=== PATIENT | male | born 1960 | race Caucasian/White ===

== ENCOUNTER 2018-12-30 19:26 | Inpatient (IN) | payer BC ==
[~2018-12-30] VITALS: Ht 190.5 cm; Wt 111.1 kg
[~2018-12-30 19:26] MED LIST: FLOMAX0.4 MG ORAL
--- NOTE | 2018-12-30 19:30 | NUR ---
ED Nurse Note: Patient arrived BIBA from the [facility]. Patient has complaints of syncopal episode witnessed by family, no fall, no head trauma. Patient alert and oriented GCS 15. Received report that patient has had diarrhea for 3 days, recent travel.
[2018-12-30 19:43] VITALS: BP 129/72
[2018-12-30 19:53] VITALS: BP 123/79
[2018-12-30 20:10] LABS: ANION GAP 8 mmol/L (5-15); BLOOD UREA NITROGEN 12 mg/dL (7-18); CALCIUM 9.1 MG/DL (8.5-10.1); CARBON DIOXIDE 28 MMOL/L (21-32); CHLORIDE 104 MMOL/L (98-107); CREATININE 1.3 MG/DL (0.55-1.30); POTASSIUM 3.8 MMOL/L (3.5-5.1); SODIUM 140 MMOL/L (136-145)
[2018-12-30 20:11] LABS: EOSINOPHILS % (AUTO) 1.4 % (0.0-3.0); HEMATOCRIT 45.3 % (42.0-52.0); HEMOGLOBIN 15.8 G/DL (14.2-18.0); LYMPHOCYTES % (AUTO) 19.2 % (20.0-45.0); MEAN CORPUSCULAR VOLUME 85 FL (80-99); MONOCYTES % (AUTO) 6.8 % (1.0-10.0); NEUTROPHILS % (AUTO) 71.7 % (45.0-75.0); PLATELET COUNT 241 K/UL (150-450); RED CELL DISTRIBUTION WIDTH 11.1 % (11.6-14.8); WHITE BLOOD COUNT 10.2 K/UL (4.8-10.8)
[2018-12-30 20:14] LABS: ALANINE AMINOTRANSFERASE 41 U/L (12-78); ALBUMIN 4.1 G/DL (3.4-5.0); ALBUMIN/GLOBULIN RATIO 1.3 (1.0-2.7); ALKALINE PHOSPHATASE 77 U/L (46-116); ASPARTATE AMINO TRANSFERASE 26 U/L (15-37); BILIRUBIN,TOTAL 0.4 MG/DL (0.2-1.0); CREATINE KINASE 156 U/L (26-308)
[2018-12-30 20:39] LABS: CKMB 4.6 NG/ML (0.0-3.6)
--- NOTE | 2018-12-30 20:50 | Emergency Room Report ---
History of Present Illness General Chief Complaint: General Complaint Source: Patient Present Illness HPI Patient was at a magic show He had arrived and the show was about to start when he had asked to use the restroom Patient's friend here reports that soon after the patient requested that he appeared to stare out into space it appeared that he was about to tilt over and passed out He was held up by other people there And he described an episode with the patient appeared to be coming in and out of consciousness at times responding and at times appearing as if he was passed out Patient recalls going to the event Patient recalls asking for the restroom and did not recall the episode after that He does feel somewhat lightheaded prior to this episode patient reports having a glass a wine at home and then having 2 beers at the event as well at this time denies any chest pain denies any back or flank pain denies any focal weakness there was no report of any change with speech , Allergies: Coded Allergies: No Known Allergies (Unverified , 12/30/18) Patient History Past Medical History: see triage record Pertinent Family History: none Reviewed Nursing Documentation: PMH: Agreed; PSxH: Agreed Nursing Documentation-PMH Past Medical History: No History, Except For Review of Systems All Other Systems: negative except mentioned in HPI Physical Exam Vital Signs Date Time Temp Pulse Resp B/P (MAP) Pulse Ox O2 Delivery O2 Flow Rate FiO2 12/30/18 19:21 97.7 80 16 99 Room Air 12/30/18 19:43 129/72 Sp02 EP Interpretation: reviewed, normal General Appearance: well appearing, no apparent distress Head: normocephalic, atraumatic Eyes: bilateral eye PERRL, bilateral eye EOMI ENT: hearing grossly normal, normal pharynx, TMs + canals normal, uvula midline Neck: full range of motion, supple, no meningismus, no bony tend Respiratory: lungs clear, normal breath sounds, no rhonchi, no respiratory distress, no retraction, no accessory muscle use Cardiovascular #1: normal peripheral pulses, regular rate, rhythm, no edema, no gallop, no JVD, no murmur Gastrointestinal: normal bowel sounds, non tender, soft, no mass, no organomegaly, non-distended, no guarding, no hernia, no pulsatile mass, no rebound Genitourinary: no CVA tenderness Musculoskeletal: normal inspection Neurologic: oriented x3, responsive, psychologist engineering III-XII nml as tested, motor strength/ tone normal, sensory intact Psychiatric: mood/affect normal Skin: normal color, no rash, warm/dry, palpation normal Lymphatic: normal inspection, no adenopathy Medical Decision Making Diagnostic Impression: Primary Impression: Syncope ER Course Patient is a fairly complex patient with multiple differential to consideration including but not limited to cardiac cardiopulmonary and vascular emergencies Given the patient's appropriate neurological exam and lack of any obvious trauma CT imaging was not warranted Patient has mild elevated CK index Also glucose is borderline Given the patient's unusual episode felt he was appropriate for further inpatient care and follow-up Labs Test 12/30/18 19:39 12/30/18 21:15 12/31/18 05:45 12/31/18 07:00 White Blood Count 10.2 K/UL (4.8-10.8) 11.5 K/UL (4.8-10.8) Red Blood Count 5.30 M/UL (4.70-6.10) 5.43 M/UL (4.70-6.10) Hemoglobin 15.8 G/DL (14.2-18.0) 16.2 G/DL (14.2-18.0) Hematocrit 45.3 % (42.0-52.0) 47.6 % (42.0-52.0) Mean Corpuscular Volume 85 FL (80-99) 88 FL (80-99) Mean Corpuscular Hemoglobin 29.8 PG (27.0-31.0) 29.8 PG (27.0-31.0) Mean Corpuscular Hemoglobin Concent 34.9 G/DL (32.0-36.0) 34.0 G/DL (32.0-36.0) Red Cell Distribution Width 11.1 % (11.6-14.8) 11.4 % (11.6-14.8) Platelet Count 241 K/UL (150-450) 243 K/UL (150-450) Mean Platelet Volume 5.3 FL (6.5-10.1) 5.9 FL (6.5-10.1) Neutrophils (%) (Auto) 71.7 % (45.0-75.0) 65.4 % (45.0-75.0) Lymphocytes (%) (Auto) 19.2 % (20.0-45.0) 22.0 % (20.0-45.0) Monocytes (%) (Auto) 6.8 % (1.0-10.0) 9.6 % (1.0-10.0) Eosinophils (%) (Auto) 1.4 % (0.0-3.0) 2.3 % (0.0-3.0) Basophils (%) (Auto) 1.0 % (0.0-2.0) 0.6 % (0.0-2.0) Sodium Level 140 MMOL/L (136-145) 139 MMOL/L (136-145) Potassium Level 3.8 MMOL/L (3.5-5.1) 4.2 MMOL/L (3.5-5.1) Chloride Level 104 MMOL/L (98-107) 104 MMOL/L (98-107) Carbon Dioxide Level 28 MMOL/L (21-32) 28 MMOL/L (21-32) Anion Gap 8 mmol/L (5-15) 7 mmol/L (5-15) Blood Urea Nitrogen 12 mg/dL (7-18) 17 mg/dL (7-18) Creatinine 1.3 MG/DL (0.55-1.30) 1.2 MG/DL (0.55-1.30) Estimat Glomerular Filtration Rate 56.7 mL/min (>60) > 60 mL/min (>60) Glucose Level 192 MG/DL (74-106) 107 MG/DL (74-106) Calcium Level 9.1 MG/DL (8.5-10.1) 9.4 MG/DL (8.5-10.1) Total Bilirubin 0.4 MG/DL (0.2-1.0) Aspartate Amino Transf (AST/SGOT) 26 U/L (15-37) Alanine Aminotransferase (ALT/SGPT) 41 U/L (12-78) Alkaline Phosphatase 77 U/L (46-116) Total Creatine Kinase 156 U/L (26-308) Creatine Kinase MB 4.6 NG/ML (0.0-3.6) Creatine Kinase MB Relative Index 2.9 Troponin I 0.004 ng/mL (0.000-0.056) 0.002 ng/mL (0.000-0.056) Total Protein 7.2 G/DL (6.4-8.2) Albumin 4.1 G/DL (3.4-5.0) Globulin 3.1 g/dL Albumin/Globulin Ratio 1.3 (1.0-2.7) Urine Color Pale yellow Pale yellow Urine Appearance Clear Clear Urine pH 6 (4.5-8.0) 6 (4.5-8.0) Urine Specific [place] 1.010 (1.005-1.035) 1.015 (1.005-1.035) Urine Protein Negative (NEGATIVE) Negative (NEGATIVE) Urine Glucose (UA) Negative (NEGATIVE) Negative (NEGATIVE) Urine Ketones Negative (NEGATIVE) Negative (NEGATIVE) Urine Blood Negative (NEGATIVE) 3+ (NEGATIVE) Urine Nitrite Negative (NEGATIVE) Negative (NEGATIVE) Urine Bilirubin Negative (NEGATIVE) Negative (NEGATIVE) Urine Urobilinogen Normal MG/DL (0.0-1.0) Normal MG/DL (0.0-1.0) Urine Leukocyte Esterase Negative (NEGATIVE) Negative (NEGATIVE) Urine Opiates Screen Negative (NEGATIVE) Urine Barbiturates Screen Negative (NEGATIVE) Phencyclidine (PCP) Screen Negative (NEGATIVE) Urine Amphetamines Screen Negative (NEGATIVE) Urine Benzodiazepines Screen Negative (NEGATIVE) Urine Cocaine Screen Negative (NEGATIVE) Urine Marijuana (THC) Screen Negative (NEGATIVE) EKG Diagnostic Results Rate: normal Rhythm: NSR ST Segments: no acute changes Rhythm Strip Diag. Results EP Interpretation: yes Rate: 70 Rhythm: NSR, no PVC's, no ectopy Last Vital Signs Date Time Temp Pulse Resp B/P (MAP) Pulse Ox O2 Delivery O2 Flow Rate FiO2 12/30/18 19:53 97.7 82 21 123/79 98 Room Air Status: improved Disposition: ADMITTED INPATIENT Condition: Serious Benedicto Salazar DO December 30, 2018 20:50
--- NOTE | 2018-12-30 21:01 | NUR ---
ED Nurse Note: PATIENT IS RESTING WITH EX AT BEDSIDE. NO S/S OF ACUTE DISTRESS.
[2018-12-30 21:39] LABS: APPEARANCE,URINE CLEAR; BILIRUBIN, URINE NEGATIVE (NEGATIVE); COLOR,URINE PALE YELLOW; GLUCOSE, URINE (UA) NEGATIVE (NEGATIVE); KETONES,URINE NEGATIVE (NEGATIVE); LEUKOCYTE ESTERASE ,URINE NEGATIVE (NEGATIVE); NITRITE,URINE NEGATIVE (NEGATIVE); PH,URINE 6 (4.5-8.0); PROTEIN,URINE NEGATIVE (NEGATIVE); UROBILINOGEN,URINE NORMAL MG/DL (0.0-1.0)
--- NOTE | 2018-12-30 22:29 | NUR ---
ED Nurse Note: Called report in to Carmel Sloan RN. Patient i A&Ox4, ambulatory with steady gait. GCS 15. PAtient's ex will meet him upstairs.
[2018-12-30 22:37] VITALS: BP 126/84
--- NOTE | 2018-12-30 22:45 | NUR ---
ED Nurse Note: Patient transported to floor by Nelson and RN. $94.00 samano verified upon arrival with floor nurse. PAtient arrived without incident. Vital signs stable.
[2018-12-30] MEDS ORDERED: Enoxaparin 30mg Inj SUBQ SCH (23:00)
--- NOTE | 2018-12-30 23:10 | NUR ---
NURSE NOTES: Received report from Shamar Finnegan, ED RN. [facility] Fall precaution applied. superannuation clerk was applied, and call light, urinal and side table are w/in reach. Pt's belonging checked. Samano $94 was checked w/ 2 staffs, and pt wanted put it in the security box. VSS, SR, 93 bpm in the monitor. Pt is resting in the bed w/o distress at this time. PCP placed admission orders. Will follow plans of care. Addendum: 12/31/18 at 0122 by VICKY AYALA RN Quality Improvement Engineer, STEPHY Frye and solutions executive security checked samano and found more samano. It was $100 total in the security box. Receipt was given to pt and copy is kept in the chart.
[2018-12-31] VITALS: BP 140/89
--- NOTE | 2018-12-31 01:22 | NUR ---
NURSE NOTES: Called and left message to Dr. Darling regarding Home med of Tamsulosin 0.4mg PO daily, Finasterdie 5 mg PO daily. pt mentioned that it is ok to skip the med for tonight. Awaiting call back.
[2018-12-31 04:00] VITALS: BP 146/86
[2018-12-31 07:06] LABS: ANION GAP 7 mmol/L (5-15); BLOOD UREA NITROGEN 17 mg/dL (7-18); CALCIUM 9.4 MG/DL (8.5-10.1); CARBON DIOXIDE 28 MMOL/L (21-32); CHLORIDE 104 MMOL/L (98-107); CREATININE 1.2 MG/DL (0.55-1.30); POTASSIUM 4.2 MMOL/L (3.5-5.1); SODIUM 139 MMOL/L (136-145)
[2018-12-31 07:09] LABS: BASOPHILS % (AUTO) 0.6 % (0.0-2.0); EOSINOPHILS % (AUTO) 2.3 % (0.0-3.0); HEMATOCRIT 47.6 % (42.0-52.0); HEMOGLOBIN 16.2 G/DL (14.2-18.0); MEAN CORPUSCULAR VOLUME 88 FL (80-99); MONOCYTES % (AUTO) 9.6 % (1.0-10.0); NEUTROPHILS % (AUTO) 65.4 % (45.0-75.0); PLATELET COUNT 243 K/UL (150-450); RED BLOOD COUNT 5.43 M/UL (4.70-6.10); RED CELL DISTRIBUTION WIDTH 11.4 % (11.6-14.8); WHITE BLOOD COUNT 11.5 K/UL (4.8-10.8)
--- NOTE | 2018-12-31 07:29 | NUR ---
HAND-OFF: Report given to Tiesha Betts RN.
[2018-12-31] MEDS ORDERED: PROSCAR5 MG ORAL (07:42)
[2018-12-31 08:00] VITALS: BP 135/83
[2018-12-31] MEDS ORDERED: Gadavist 7.5mMol/7.5ml vial IV PRN (08:00)
[2018-12-31 08:01] LABS: APPEARANCE,URINE CLEAR; BILIRUBIN, URINE NEGATIVE (NEGATIVE); COLOR,URINE PALE YELLOW; GLUCOSE, URINE (UA) NEGATIVE (NEGATIVE); KETONES,URINE NEGATIVE (NEGATIVE); LEUKOCYTE ESTERASE ,URINE NEGATIVE (NEGATIVE); NITRITE,URINE NEGATIVE (NEGATIVE); PH,URINE 6 (4.5-8.0); PROTEIN,URINE NEGATIVE (NEGATIVE); UROBILINOGEN,URINE NORMAL MG/DL (0.0-1.0)
[2018-12-31] MEDS: Aspirin Baby 81mg ORAL SCH (09:09)
--- NOTE | 2018-12-31 10:30 | History and Physical Report ---
DATE OF ADMISSION: 12/30/2018 REASON FOR ADMISSION: Syncope. HISTORY OF PRESENT ILLNESS: The patient is a pleasant 58-year-old gentleman, who was at a local magic show when he was about to use the restroom and felt lightheaded. The patient stated he was actually sitting down at one point and passed out. He states an EMT at the local show actually came and responded. The patient states that he did actually pass out because there is a time of event where he does not remember. He states this has not happened in the past. Only had felt lightheaded or dizzy in the past when had an acute illness. During the evening, the patient noted having one glass of wine and two beers. No other alcohol or drugs. No chest pain, nausea, vomiting, or diarrhea. ALLERGIES: No known drug allergies. PAST MEDICAL HISTORY: BPH. PAST SURGICAL HISTORY: None. FAMILY HISTORY: Noncontributory. REVIEW OF SYSTEMS: NEUROLOGIC: The patient had a syncopal event with lightheadedness. CARDIOVASCULAR: No chest pain, palpitations, or angina. PULMONARY: No difficulty breathing, productive cough, or sputum. GASTROINTESTINAL/GENITOURINARY: No change in urinary or bowel habits. No nausea, vomiting, or diarrhea. ENDOCRINOLOGY: No night sweats, fevers, or chills. MUSCULOSKELETAL: The patient feeling weak, tired, and fatigue. PHYSICAL EXAMINATION: VITAL SIGNS: Blood pressure 146/86, respiratory rate 20, pulse 82, temperature 98.0, and 94% oxygen saturation on room air. GENERAL: Awake, alert, not otherwise in distress. HEENT: Extraocular muscles intact. No lymphadenopathy noted. CARDIOVASCULAR: S1, S2. No murmurs, rubs, or gallops. PULMONARY: Clear to auscultation bilaterally. No rales, rhonchi, or wheezes. ABDOMEN: Nondistended and nontender. EXTREMITIES: No edema. LABORATORY DATA: Laboratories dated December 31, 2018, sodium 139, potassium 4.2, creatinine 1.2, glucose 107, calcium 9.4. Troponin . Toxicology screen negative. White cell count 11.5, hemoglobin 16.2, and platelet count 243. Urinalysis negative. ASSESSMENT AND PLAN: 1. Syncope. At this time, etiology not entirely clear. It could have been secondary to dehydration from alcohol consumption. The patient is much improved. Carotid ultrasound to rule out stenosis has been ordered along with an MRI of the brain. Troponins have been ordered, which have been negative along with a Cardiology consult. Once cardiac and neurological events have been investigated, the patient can be deemed stable for discharge. 2. BPH. We will continue finasteride and Flomax. 3. DVT prophylaxis with Lovenox. Jamie Darling MD DR: CHARLES/TAJ JOB#: [id number] CC:
--- NOTE | 2018-12-31 11:10 | Cardiology Report ---
APPROVED REPORT EKG Measurement Heart [id number] Normal sinus rhythm Normal ECG
[2018-12-31 12:00] VITALS: BP 140/98
--- NOTE | 2018-12-31 12:22 | Consultation ---
History of Present Illness General Date patient seen: December 30, 2018 Chief Complaint: Syncope/ Near Syncope Present Illness HPI Ignacio Wade is a 58 year old man with a PMH of prior syncope and BPH. He reports that he had some wine at home and a couple of beers at a magic show when he began to feel lightheaded and says he felt like he was going to pass out , at which point he said he wanted to go to the bathroom. He reports that he was aware of what was happening around him but he couldn't control his body and saw what was happening around him. According to ER records, patient's friend reported that soon after the patient requested that he appeared to stare out into space it appeared that he was about to tilt over and passed out He was held up by other people there and he described an episode where the patient appeared to be coming in and out of consciousness at times responding and at times appearing as if he was passed out Upon questioning, patient states that he remembers this episode and was with his ex - , with whom he shares a daughter with Epilepsy. He thinks she called an ambulance because she was worried this may be a seizure. However, he reports that he has had similar past episodes and never been confused, weak, or experienced any motor tremors, incontinence or tongue biting. At the time of our examination, patient is fully intact without focal deficits, slurred speech, facial weakness or confusion. Allergies: Coded Allergies: No Known Allergies (Unverified , 12/30/18) Medication History Scheduled Finasteride* (Proscar*), 5 MG ORAL DAILY, (Reported) Tamsulosin HCl (Flomax), 0.4 MG ORAL DAILY, (Reported) Patient History History Provided By: Patient, Medical Record Healthcare decision maker Resuscitation status Full Code Advanced Directive on File Review of Systems Constitutional: Denies: no symptoms, see HPI, chills, sweats, fever, malaise, weakness, other ENT: Denies: no symptoms, see HPI, ear pain, ear discharge, nose pain, nose congestion, throat pain, throat swelling, mouth pain, hearing loss, nasal discharge, other Respiratory: Denies: no symptoms, see HPI, cough, orthopnea, shortness of breath, stridor, wheezing, CURRY, sputum, other Cardiovascular: Denies: no symptoms, see HPI, chest pain, edema, palpitations, syncope, PND, other Gastrointestinal: Denies: no symptoms, see HPI, abdominal pain, constipation, diarrhea, nausea, vomiting, melena, hematemesis, other Genitourinary: Denies: no symptoms, see HPI, discharge, dysuria, frequency, hematuria, pain, retention, incontinence, urgency, vag bleed/dc, other Musculoskeletal: Denies: no symptoms, see HPI, back pain, gout, joint pain, joint swelling, muscle pain, muscle stiffness, other Skin: Denies: no symptoms, see HPI, rash, change in color, change in hair/nails , dryness, lesions, other Psychiatric: Denies: no symptoms, see HPI, prior hx, anxiety, depressed feelings, emotional problems, SI, HI, hallucinations, other Neurological: Denies: no symptoms, see HPI, headache, numbness, paresthesia, seizure, tingling, tremors, focal weakness, syncope, dizziness, other Endocrine: Denies: no symptoms, see HPI, excessive sweating, flushing, intolerance to temperature, increased thirst, increased urine, unexplained weight loss, other Hematologic/Lymphatic: Denies: no symptoms, see HPI, anemia, blood clots, easy bleeding, easy bruising, swollen glands, diathesis, other Physical Exam General Appearance: WD/WN, no apparent distress, alert Lines, tubes and drains: peripheral HEENT: normocephalic, atraumatic, anicteric, mucous membranes moist, PERRL Neck: non-tender, normal alignment, supple Respiratory/Chest: normal breath sounds Cardiovascular/Chest: normal peripheral pulses, no JVD Abdomen: non tender Extremities: normal range of motion, non-tender, normal inspection, no calf tenderness, normal capillary refill, non-pitting, no edema, no cyanosis Skin Exam: normal pigmentation, warm/dry Neurologic: warehouse checker II-XII grossly normal, no motor/sensory deficits, alert, oriented x 3, responsive, normal mood/affect Musculoskeletal: normal muscle bulk, no effusion Last 24 Hour Vital Signs Date Time Temp Pulse Resp B/P (MAP) Pulse Ox O2 Delivery O2 Flow Rate FiO2 12/31/18 08:00 97.8 62 20 135/83 (100) 97 12/31/18 04:00 98.0 74 20 146/86 (106) 94 12/31/18 04:00 82 12/31/18 00:00 90 12/31/18 00:00 98.0 92 20 140/89 (106) 96 12/30/18 23:45 Room Air 12/30/18 22:39 98.1 98 17 126/84 96 Room Air 12/30/18 22:37 98.1 98 17 126/84 96 Room Air 12/30/18 19:53 97.7 82 21 123/79 98 Room Air 12/30/18 19:43 97.7 89 16 129/72 99 Room Air 12/30/18 19:43 80 16 Room Air 12/30/18 19:21 97.7 80 16 99 Room Air Intake and Output 12/30/18 12/31/18 19:00 07:00 Intake Total 0 ml Output Total 1000 ml Balance -1000 ml Intake Oral 0 ml Output Urine Total 1000 ml Laboratory Tests Test 12/30/18 19:39 12/30/18 21:15 12/31/18 05:45 12/31/18 07:00 White Blood Count 10.2 K/UL (4.8-10.8) 11.5 K/UL (4.8-10.8) H Red Blood Count 5.30 M/UL (4.70-6.10) 5.43 M/UL (4.70-6.10) Hemoglobin 15.8 G/DL (14.2-18.0) 16.2 G/DL (14.2-18.0) Hematocrit 45.3 % (42.0-52.0) 47.6 % (42.0-52.0) Mean Corpuscular Volume 85 FL (80-99) 88 FL (80-99) Mean Corpuscular Hemoglobin 29.8 PG (27.0-31.0) 29.8 PG (27.0-31.0) Mean Corpuscular Hemoglobin Concent 34.9 G/DL (32.0-36.0) 34.0 G/DL (32.0-36.0) Red Cell Distribution Width 11.1 % (11.6-14.8) L 11.4 % (11.6-14.8) L Platelet Count 241 K/UL (150-450) 243 K/UL (150-450) Mean Platelet Volume 5.3 FL (6.5-10.1) L 5.9 FL (6.5-10.1) L Neutrophils (%) (Auto) 71.7 % (45.0-75.0) 65.4 % (45.0-75.0) Lymphocytes (%) (Auto) 19.2 % (20.0-45.0) L 22.0 % (20.0-45.0) Monocytes (%) (Auto) 6.8 % (1.0-10.0) 9.6 % (1.0-10.0) Eosinophils (%) (Auto) 1.4 % (0.0-3.0) 2.3 % (0.0-3.0) Basophils (%) (Auto) 1.0 % (0.0-2.0) 0.6 % (0.0-2.0) Sodium Level 140 MMOL/L (136-145) 139 MMOL/L (136-145) Potassium Level 3.8 MMOL/L (3.5-5.1) 4.2 MMOL/L (3.5-5.1) Chloride Level 104 MMOL/L (98-107) 104 MMOL/L (98-107) Carbon Dioxide Level 28 MMOL/L (21-32) 28 MMOL/L (21-32) Anion Gap 8 mmol/L (5-15) 7 mmol/L (5-15) Blood Urea Nitrogen 12 mg/dL (7-18) 17 mg/dL (7-18) Creatinine 1.3 MG/DL (0.55-1.30) 1.2 MG/DL (0.55-1.30) Estimat Glomerular Filtration Rate 56.7 mL/min (>60) > 60 mL/min (>60) Glucose Level 192 MG/DL (74-106) H 107 MG/DL (74-106) H Calcium Level 9.1 MG/DL (8.5-10.1) 9.4 MG/DL (8.5-10.1) Total Bilirubin 0.4 MG/DL (0.2-1.0) Aspartate Amino Transf (AST/SGOT) 26 U/L (15-37) Alanine Aminotransferase (ALT/SGPT) 41 U/L (12-78) Alkaline Phosphatase 77 U/L (46-116) Total Creatine Kinase 156 U/L (26-308) Creatine Kinase MB 4.6 NG/ML (0.0-3.6) H Creatine Kinase MB Relative Index 2.9 Troponin I 0.004 ng/mL (0.000-0.056) 0.002 ng/mL (0.000-0.056) Total Protein 7.2 G/DL (6.4-8.2) Albumin 4.1 G/DL (3.4-5.0) Globulin 3.1 g/dL Albumin/Globulin Ratio 1.3 (1.0-2.7) Urine Color Pale yellow Pale yellow Urine Appearance Clear Clear Urine pH 6 (4.5-8.0) 6 (4.5-8.0) Urine Specific [place] 1.010 (1.005-1.035) 1.015 (1.005-1.035) Urine Protein Negative (NEGATIVE) Negative (NEGATIVE) Urine Glucose (UA) Negative (NEGATIVE) Negative (NEGATIVE) Urine Ketones Negative (NEGATIVE) Negative (NEGATIVE) Urine Blood Negative (NEGATIVE) 3+ (NEGATIVE) H Urine Nitrite Negative (NEGATIVE) Negative (NEGATIVE) Urine Bilirubin Negative (NEGATIVE) Negative (NEGATIVE) Urine Urobilinogen Normal MG/DL (0.0-1.0) Normal MG/DL (0.0-1.0) Urine Leukocyte Esterase Negative (NEGATIVE) Negative (NEGATIVE) Urine Opiates Screen Negative (NEGATIVE) Urine Barbiturates Screen Negative (NEGATIVE) Phencyclidine (PCP) Screen Negative (NEGATIVE) Urine Amphetamines Screen Negative (NEGATIVE) Urine Benzodiazepines Screen Negative (NEGATIVE) Urine Cocaine Screen Negative (NEGATIVE) Urine Marijuana (THC) Screen Negative (NEGATIVE) Urine RBC 10-15 /HPF (0 - 0) H Urine WBC 0-2 /HPF (0 - 0) Urine Squamous Epithelial Cells Occasional /LPF Urine Bacteria Occasional /HPF (NONE) Height (Feet): 6 Height (Inches): 3.00 Weight (Pounds): 245 Medications Current Medications Medications (Trade) Dose Ordered Sig/Corry Route PRN Reason Start Time Stop Time Status Last Admin Dose Admin Acetaminophen (Tylenol) 650 mg Q4H PRN ORAL Mild Pain (Pain Scale 1-3) 12/30/18 21:30 01/29/19 21:29 Aspirin (ASA) 81 mg DAILY ORAL 12/31/18 09:00 01/30/19 08:59 12/31/18 09:09 Dextrose (Dextrose 50%) 25 ml Q30M PRN IV Hypoglycemia 12/30/18 21:30 01/29/19 21:29 Dextrose (Dextrose 50%) 50 ml Q30M PRN IV Hypoglycemia 12/30/18 21:30 01/29/19 21:29 Enoxaparin Sodium (Lovenox) 40 mg QHS SUBQ 12/31/18 21:00 01/30/19 20:59 Famotidine (Pepcid) 40 mg DAILY ORAL 12/31/18 09:00 01/30/19 08:59 12/31/18 09:09 Finasteride (Proscar) 5 mg DAILY ORAL 12/31/18 09:00 01/30/19 08:59 12/31/18 09:08 Tamsulosin HCl (Flomax) 0.4 mg BEDTIME ORAL 12/31/18 21:00 01/30/19 20:59 Assessment/Plan Problem List: (1) Syncope Assessment & Plan: Likely a vasovagal syncope but prudent to rule out CVA or seizure MRI already ordered Routine EEG - may be performed as outpatient if no further episodes Labs: TSH HgBA1c Lipids To assess for stroke risk factors Continue ASA 81mg Q4 neuro obs PT Eval today Should follow up with neurology as outpatient if further episodes occur. ICD Codes: R55 - Syncope and collapse SNOMED: [id number] Status: stable Assessment/Plan: Syncope vs Seizure vs TIA/CVA - Likely vasovagal syncope MRI already ordered - to rule out TIA /CVA and EEG - ordered but can be performed as outpatient if unable to have today . Claudia Linton N.P. December 31, 2018 12:22
--- NOTE | 2018-12-31 12:27 | Diagnostic Imaging Report ---
Indication: 58-year-old with the syncope and fainting episode Technique: The head was imaged in a 1.5 Giovana magnet. Sequences obtained include sagittal and axial T1 FLAIR, axial T2 fast spin echo with fat saturation, axial T2 FLAIR, diffusion and ADC map. Gadolinium-enhanced axial and coronal T1 FLAIR obtained also. Comparison: None Findings: Size contour and configuration of the sulci, ventricles, and basal cisterns are within normal. Trace, nonspecific T2 hyperintensity noted within white matter primarily periventricular in location. This may be due to chronic small vessel disease. No abnormal enhancement is identified. There is no restricted diffusion. Dior-white differentiation is normal. There is no mass effect, midline shift, edema, or hemorrhage. There are no abnormal extra-axial or intra-axial fluid collections. The corpus callosum and sella are unremarkable. The brainstem and cerebellum are unremarkable. Bone marrow signal within the visualized osseous structures appears age appropriate and unremarkable otherwise. Impression: No acute intracranial findings. Trace nonspecific T2 hyperintensity foci likely chronic small vessel disease involving white matter tracts.
[2018-12-31 12:51] LABS: CHOLESTEROL 161 MG/DL (< 200); HDL CHOLESTEROL 33 MG/DL (40-60); TRIGLYCERIDES 148 MG/DL (30-150)
--- NOTE | 2018-12-31 13:06 | NUR ---
*-* NO INSURANCE INFORMATION UNABLE TO SEND CLINICALS OR REVIEWS *-*
--- NOTE | 2018-12-31 15:38 | NUR ---
CASE MANAGEMENT:[facility] 58 [facility] CC: SYNCOPE SI: SYNCOPE 97.7 80 16 129/72 99% ON RA GLUCOSE+192 CKMB+4.6 TROPONIN(-) IS: 500CC NS BOLUS LOVENOX ASA PO : TO TELEMETRY IS: CT HEAD CAROTID DUPLEX EEG INTERQUAL CRITERIA MET
[2018-12-31 16:00] VITALS: BP 137/83
--- NOTE | 2018-12-31 19:22 | NUR ---
HAND-OFF: Report given to Mariaelena RN. Plan of care endorsed. Pt in stable condition.
--- NOTE | 2018-12-31 19:52 | NUR ---
NURSE NOTES: Received patient from Marisel Betts RN. Patient in bed, alert and oriented. On room air, no s/s of respiratory distress. Family at bedside. Bed in low position, alarm on, bed locked, alexx light within reach.
[2018-12-31 20:00] VITALS: BP 143/99
[2018-12-31] MEDS ORDERED: Enoxaparin 40mg Inj SUBQ SCH (21:00)
[2018-12-31] MEDS ORDERED: Tamsulosin 0.4mg cap ORAL SCH (21:00)
--- NOTE | 2018-12-31 21:28 | Neurology Progress Note ---
Interim History Interim History Events: Syncope Objective Physical Exam Last Vital Signs Date Time Temp Pulse Resp B/P (MAP) Pulse Ox O2 Delivery O2 Flow Rate FiO2 12/31/18 16:00 78 12/31/18 16:00 97.0 20 137/83 (101) 97 12/31/18 09:00 Room Air Laboratory Tests Test 12/31/18 05:45 12/31/18 07:00 White Blood Count 11.5 K/UL (4.8-10.8) H Red Blood Count 5.43 M/UL (4.70-6.10) Hemoglobin 16.2 G/DL (14.2-18.0) Hematocrit 47.6 % (42.0-52.0) Mean Corpuscular Volume 88 FL (80-99) Mean Corpuscular Hemoglobin 29.8 PG (27.0-31.0) Mean Corpuscular Hemoglobin Concent 34.0 G/DL (32.0-36.0) Red Cell Distribution Width 11.4 % (11.6-14.8) L Platelet Count 243 K/UL (150-450) Mean Platelet Volume 5.9 FL (6.5-10.1) L Neutrophils (%) (Auto) 65.4 % (45.0-75.0) Lymphocytes (%) (Auto) 22.0 % (20.0-45.0) Monocytes (%) (Auto) 9.6 % (1.0-10.0) Eosinophils (%) (Auto) 2.3 % (0.0-3.0) Basophils (%) (Auto) 0.6 % (0.0-2.0) Sodium Level 139 MMOL/L (136-145) Potassium Level 4.2 MMOL/L (3.5-5.1) Chloride Level 104 MMOL/L (98-107) Carbon Dioxide Level 28 MMOL/L (21-32) Anion Gap 7 mmol/L (5-15) Blood Urea Nitrogen 17 mg/dL (7-18) Creatinine 1.2 MG/DL (0.55-1.30) Estimat Glomerular Filtration Rate > 60 mL/min (>60) Glucose Level 107 MG/DL (74-106) H Hemoglobin A1c 6.0 % (4.3-6.0) Calcium Level 9.4 MG/DL (8.5-10.1) Troponin I 0.002 ng/mL (0.000-0.056) Triglycerides Level 148 MG/DL (30-150) Cholesterol Level 161 MG/DL (< 200) LDL Cholesterol 108 mg/dL (<100) H HDL Cholesterol 33 MG/DL (40-60) L Cholesterol/HDL Ratio 4.9 (3.3-4.4) H Thyroid Stimulating Hormone (TSH) 2.829 uiU/mL (0.358-3.740) Urine Color Pale yellow Urine Appearance Clear Urine pH 6 (4.5-8.0) Urine Specific [place] 1.015 (1.005-1.035) Urine Protein Negative (NEGATIVE) Urine Glucose (UA) Negative (NEGATIVE) Urine Ketones Negative (NEGATIVE) Urine Blood 3+ (NEGATIVE) H Urine Nitrite Negative (NEGATIVE) Urine Bilirubin Negative (NEGATIVE) Urine Urobilinogen Normal MG/DL (0.0-1.0) Urine Leukocyte Esterase Negative (NEGATIVE) Urine RBC 10-15 /HPF (0 - 0) H Urine WBC 0-2 /HPF (0 - 0) Urine Squamous Epithelial Cells Occasional /LPF Urine Bacteria Occasional /HPF (NONE) Impression/Recommendations Problems: (1) Syncope Assessment & Plan: Likely a vasovagal syncope but prudent to rule out CVA or seizure MRI already ordered Routine EEG - may be performed as outpatient if no further episodes Labs: TSH HgBA1c Lipids To assess for stroke risk factors Continue ASA 81mg Q4 neuro obs PT Eval today Should follow up with neurology as outpatient if further episodes occur. Status: stable Claudia Linton N.P. December 31, 2018 21:28
[2019-01-01] VITALS: BP 147/86
--- NOTE | 2019-01-01 02:50 | NUR ---
HAND-OFF: Report given to STEPHY Reardon. Patient is asleep lying semi-hill's; resting comfortably. In stable condition.
--- NOTE | 2019-01-01 03:00 | NUR ---
NURSE NOTES: Got report from Mona KEYES. Pt in stable condition. Continue to monitor.
--- NOTE | 2019-01-01 03:45 | Consultation ---
DATE OF CONSULTATION: 12/31/2018 CARDIOLOGY CONSULTATION CONSULTING PHYSICIAN: Damion Bryant M.D. REQUESTING PHYSICIAN: Jamie Darling M.D. REASON FOR CONSULTATION: Syncope. HISTORY OF PRESENT ILLNESS: This 58-year-old white male with no history of cardiovascular disease was at a magic show last night, when he felt lightheaded, went to the bathroom for an unknown reason and passed out. He did not sustain any injury, but has no recollection of the events associated with his fall. He notes that he had eaten although had been hungry previously and had two beers and a glass of wine. He also had been somewhat "dehydrated" due to several days of ongoing diarrhea. He was evaluated in the emergency room and had a normal EKG, stable vital signs, and was admitted for further management. PAST MEDICAL HISTORY: Notable for prostatic hypertrophy. ALLERGIES: None. FAMILY HISTORY: Noncontributory. SOCIAL HISTORY: Negative for smoking or substance abuse. He drinks alcohol socially. REVIEW OF SYSTEMS: Negative for cerebrovascular disease, seizure disorder, endocarditis, rheumatic heart disease, irregular heartbeats, hypertension, or coronary artery disease. There is no history of thyroid disorder or diabetes and no history of asthma or abnormal blood clotting. PHYSICAL EXAMINATION: VITAL SIGNS: Blood pressure 146/86, pulse 82, respiratory rate 20, and afebrile. HEENT: Normocephalic and atraumatic. Conjunctivae are pink. Oropharynx is clear. NECK: Supple. Carotid upstrokes without delay. No bruits. LUNGS: Clear. CARDIAC: Regular rhythm and rate. Normal S1 and S2 with no murmur, rub, or gallop. ABDOMEN: Soft and nontender. EXTREMITIES: Without edema. Good distal pulses noted. NEUROLOGIC: Nonfocal. LABORATORY DATA: EKG as noted. Labs reviewed. Toxicology screen negative. Troponin negative. IMPRESSION: This is a 58-year-old male, who suffered a syncopal episode without any associated injury. There is no history of prior cardiac disease and presently no signs of any acute cardiac disease. The patient likely suffered a vasovagal and mediated syncopal episode due to mild hypovolemia and dehydration related to his diarrhea and associated alcohol consumption. PLAN: 1. Recommend cardiac monitoring for 24 to 48 hours. 2. Monitor blood pressure parameters and orthostatics. 3. Maintain adequate hydration. 4. Repeat troponin and electrolytes. 5. Echocardiogram to evaluate for structural heart disease. Damion Bryant M.D. DR: MARY JOB#: [id number] CC:
[2019-01-01 04:20] VITALS: BP 140/89
--- NOTE | 2019-01-01 07:00 | NUR ---
HAND-OFF: Report given to Marisel KEYES. Endorsed plan of care.
--- NOTE | 2019-01-01 07:12 | NUR ---
NURSE NOTES: Report received from STEPHY Chavez. Pt shows no signs of distress, no SOB, no pain. A+Ox4. Respirations are even and unlabored on room air. IV site is patent, intact, and saline locked. Bed is at lowest position, brakes engaged, siderails x3, bed alarm on, and call light within reach. Pt is in stable condition at this time; will continue to monitor.
[2019-01-01 07:17] LABS: BASOPHILS % (AUTO) 0.9 % (0.0-2.0); EOSINOPHILS % (AUTO) 3.1 % (0.0-3.0); HEMATOCRIT 50.9 % (42.0-52.0); HEMOGLOBIN 17.5 G/DL (14.2-18.0); LYMPHOCYTES % (AUTO) 24.1 % (20.0-45.0); MEAN CORPUSCULAR VOLUME 88 FL (80-99); MONOCYTES % (AUTO) 9.7 % (1.0-10.0); NEUTROPHILS % (AUTO) 62.2 % (45.0-75.0); PLATELET COUNT 279 K/UL (150-450); RED BLOOD COUNT 5.78 M/UL (4.70-6.10); RED CELL DISTRIBUTION WIDTH 11.7 % (11.6-14.8); WHITE BLOOD COUNT 10.8 K/UL (4.8-10.8)
[2019-01-01 07:40] LABS: ANION GAP 9 mmol/L (5-15); BLOOD UREA NITROGEN 18 mg/dL (7-18); CALCIUM 9.6 MG/DL (8.5-10.1); CARBON DIOXIDE 29 MMOL/L (21-32); CHLORIDE 104 MMOL/L (98-107); CREATININE 1.3 MG/DL (0.55-1.30); POTASSIUM 3.8 MMOL/L (3.5-5.1); SODIUM 142 MMOL/L (136-145)
[2019-01-01 08:00] VITALS: BP 141/86
--- NOTE | 2019-01-01 08:19 | Nephrology Progress Note ---
Assessment/Plan Status: stable Assessment/Plan: A/P 1) Syncope- MRI Head negative. ECHO no acute findings - Neuro cslt appreciated/vasovagal - DC today once cleared by cardiology - continue ASA 2) BPH- continue home medications Subjective Date patient seen: January 01, 2019 Time patient seen: 08:16 ROS Limited/Unobtainable: No Allergies: Coded Allergies: No Known Allergies (Unverified , 12/30/18) Subjective Patient feeling well. No acute distress. No further syncopal episodes Objective Last 24 Hour Vital Signs Date Time Temp Pulse Resp B/P (MAP) Pulse Ox O2 Delivery O2 Flow Rate FiO2 01/01/19 04:20 97.0 65 18 140/89 (106) 97 01/01/19 04:10 54 01/01/19 00:48 63 01/01/19 00:00 97.4 50 18 147/86 (106) 98 01/01/19 00:00 50 57 64 12/31/18 21:00 Room Air 12/31/18 20:00 97.7 60 18 143/99 (114) 98 12/31/18 19:04 62 12/31/18 16:00 78 12/31/18 16:00 97.0 67 20 137/83 (101) 97 12/31/18 12:00 98.7 78 20 140/98 (112) 96 12/31/18 12:00 67 12/31/18 09:00 Room Air Intake and Output 12/31/18 01/01/19 18:59 06:59 Intake Total 750 ml Output Total 350 ml Balance 400 ml Intake Oral 750 ml Output Urine Total 350 ml # Voids 3 2 Laboratory Tests 01/01/19 06:40: White Blood Count 10.8, Red Blood Count 5.78, Hemoglobin 17.5, Hematocrit 50.9, Mean Corpuscular Volume 88, Mean Corpuscular Hemoglobin 30.3, Mean Corpuscular Hemoglobin Concent 34.5, Red Cell Distribution Width 11.7, Platelet Count 279, Mean Platelet Volume 6.1L, Neutrophils (%) (Auto) 62.2, Lymphocytes (%) (Auto) 24.1, Monocytes (%) (Auto) 9.7, Eosinophils (%) (Auto) 3.1H, Basophils (%) (Auto ) 0.9, Sodium Level 142, Potassium Level 3.8, Chloride Level 104, Carbon Dioxide Level 29, Anion Gap 9, Blood Urea Nitrogen 18, Creatinine 1.3, Estimat Glomerular Filtration Rate 56.7, Glucose Level 140H, Calcium Level 9.6 Height (Feet): 6 Height (Inches): 3.00 Weight (Pounds): 245 General Appearance: no apparent distress, alert EENT: normal ENT inspection Neck: normal alignment, supple Cardiovascular: normal rate, regular rhythm Respiratory/Chest: lungs clear, normal breath sounds Abdomen: non tender, soft Edema: no edema noted Arm (L), no edema noted Arm (R), no edema noted Leg (L), no edema noted Leg (R), no edema noted Pedal (L), no edema noted Pedal (R), no edema noted Generalized Jamie Darling MD January 01, 2019 08:19
--- NOTE | 2019-01-01 08:20 | Discharge Instructions ---
Discharge Instructions Discharge Instructions Services at Discharge: day care Diet: regular Resume Normal Activity?: Yes Follow Up Orders Follow up PCP 1 week For Congestive Heart Failure Reminder Report to your physician any weight gain of 5 pounds or more in one week. Jamie Darling MD January 01, 2019 08:20
[2019-01-01] MEDS: Aspirin Baby 81mg ORAL SCH (08:28)
--- NOTE | 2019-01-01 08:53 | NUR ---
CASE MANAGEMENT:REVIEW 01/01/19 SI: SYNCOPE vs NEAR SYNCOPE 98.0 66 18 141/86 96% ON RA GLUCOSE+140 IS: FLOMAX PO QHS LOVENOX SQ QHS ASA PO QD PEPCID PO QD PROSCAR PO QD : TELEMETRY STATUS PLAN: DISCHARGE TODAY
--- NOTE | 2019-01-01 11:36 | NUR ---
*-* NO INSURANCE INFORMATION TO SEND CLINICALS OR REVIEWS *-*
--- NOTE | 2019-01-01 11:45 | NUR ---
NURSE NOTES: Pt signed discharge instructions and belongings sheet. Pt has all belongings with him. IV, sand conditioner, and wristband removed. Pt has no complaints and is in stable condition. No distress noted. Pt discharged safely from floor with ex-.
--- NOTE | 2019-01-01 13:06 | NUR ---
*-* INSURANCE *-* ALL CLINICALS AND REVIEWS HAVE BEEN FAXED TO: CHANELL UMANZOR F:[phone]
--- NOTE | 2019-01-01 14:02 | Cardiology Report ---
APPROVED REPORT EXAM: Two-dimensional and M-mode echocardiogram with Doppler and color Doppler. INDICATION Syncope M-Mode DIMENSIONS IVSd1.0 (0.7-1.1cm)Left Atrium (MM)3.5 (1.6-4.0cm) LVDd5.7 (3.5-5.6cm)Aortic Root3.4 (2.0-3.7cm) PWd1.0 (0.7-1.1cm)Aortic Cusp Exc.2.3 (1.5-2.0cm) IVSs1.6 cm LVDs3.7 (2.5-4.0cm) PWs2.3 cm Normal left ventricular chamber size, systolic function and wall motion . Left ventricular ejection fraction estimated to be 60-65%. Mild left ventricular hypertrophy by 2-D. No evidence of pericardial effusion. Mild bi-atrial enlargement. Right ventricular size at upper limits of normal. Aortic valve calcification with normal cusp excursion . Mildly thickened mitral valve leaflets with normal excursion. Mild mitral annulus and aortic root calcification. Pulmonic valve not well visualized. IVC at 2.2cm without physiologic collapse suggestive of increased RA pressure. A color flow and spectral Doppler study was performed and revealed: No aortic insufficiency . Mitral inflow indicates normal left ventricular diastolic function. Trace mitral regurgitation. Trace tricuspid regurgitation. Tricuspid systolic velocities suggests peak right ventricular systolic pressure of 21 mmHg.
--- NOTE | 2019-01-02 03:30 | Electroencephalogram ---
DATE OF PROCEDURE: 12/31/2018 REQUESTING PHYSICIAN: Bogdan French M.D. READING PHYSICIAN: Mychal Pandey M.D. PROCEDURE PERFORMED: Electroencephalogram. HISTORY: This EEG was performed on a 58-year-old gentleman with a history of an episode of loss of consciousness and episodes of staring out into space. The purpose of this EEG was to evaluate the patient for ictal or interictal phenomena. TECHNICAL NOTE: This EEG was performed on a [employer] with electrodes placed on the scalp according to the International 10-20 system. [id number] and [id number]-tn-[id number] montages were used. The EEG was technically satisfactory and was performed in the awake and drowsy states. OBSERVATIONS: In the best awake state, the background activity consisted of 8.5-9 Hz, posteriorly predominant, well-developed, alpha waveforms, which attenuated on eye opening. Drowsiness was characterized by dissolution of the alpha rhythm and the appearance of slow frequencies in the 6-7 Hz theta range. No focal abnormalities or epileptiform discharges were seen. IMPRESSION: Normal awake and drowsy EEG. COMMENT: A normal EEG does not rule out a seizure disorder. Mychal Pandey M.D., M.S.P.H. DR: ELSA JOB#: [id number] MTDD
--- NOTE | 2019-01-02 04:30 | Progress Note ---
DATE: 01/01/2019 CARDIOLOGY PROGRESS NOTE SUBJECTIVE: The patient has not had any dizziness, lightheadedness, or loss of consciousness. He denies chest pain or shortness of breath. Echocardiogram completed. Ejection fraction is normal with no significant valvular disease or pulmonary hypertension. OBJECTIVE: VITAL SIGNS: Blood pressure is 141/86, pulse 65, and respirations 18. LUNGS: Clear. CARDIAC: Regular. Normal S1, S2. No carotid sinus hypersensitivity. ABDOMEN: Soft. EXTREMITIES: No edema. IMPRESSION: 1. Vasovagally mediated syncopal episode. 2. Asymptomatic sinus bradycardia. 3. Recent gastroenteritis with diarrhea, now recovered. PLAN: 1. Maintain adequate hydration. 2. Antidiarrheals as needed. 3. No cardiovascular medications indicated and no additional cardiovascular workup planned. 4. Recurring syncope in the future may warrant event recorder. Damion Bryant M.D. DR: STEPHANIE JOB#: [id number] CC:
--- NOTE | 2019-01-02 10:32 | Discharge Summary ---
Discharge Summary Discharge Summary _ DATE OF ADMISSION: 12/30/2018 DATE OF DISCHARGE: 01/01/2019 DISCHARGED BY: Dr. Jamie Darling CONSULTANTS: Dr. Damion French [employer] COURSE: Patient is a 58-year-old male, who was at a local match show when he was about to use the restroom and felt lightheaded. The patient stated he was actually sitting down at one point and passed out. He stated EMT at the local show actually came and responded. He stated he did actually pass out because there was time of the event where he did not remember. He stated this has not happened in the past. He only felt lightheaded or dizzy in the past when he had an acute illness. During the evening, he had one glass of wine and 2 beers. There was no other alcohol or drugs. He denied chest pain, nausea, vomiting or diarrhea. He has medical history significant for BPH. On evaluation at the ED, vital signs were stable. Blood work did not show any leukocytosis. Hemoglobin and hematocrit were stable. Electrolytes were normal. Kidney function was stable. Troponin was negative. Urinalyses was negative. Urine toxicology screen was negative. EKG was in normal sinus rhythm. He had stable neurological exam without any obvious trauma. He was admitted for evaluation of syncope. [employer] and neurologist were consulted. On neuro examination, patient was fully intact without focal deficits slurring of speech or facial weakness. He was placed on frequent neuro checks. He was given antiplatelet therapy. MRI of the brain not show any acute intracranial findings. He was recommended EEG, which could be done as outpatient. Patient did not have any history of prior cardiac disease and did not show any signs of acute cardiac disease. Troponin was negative x2. He denied chest pain or shortness of breath. Lipid panel was acceptable. TSH was normal. Echocardiogram showed ejection fraction normal with no significant valvular disease or pulmonary hypertension. There was no cardiovascular medication indicated and no additional cardiovascular work-up was planned. He was recommended if he had recurring of symptoms in the future, he may warrant an event recorder. FINAL DIAGNOSES: Syncope, vasovagally mediated Asymptomatic sinus bradycardia Recent gastroenteritis with diarrhea, recovered BPH DISPOSITION: Patient was discharged home. DISCHARGE MEDICATIONS: Refer to Discharge Medication List. DISCHARGE INSTRUCTIONS: Follow-up in a week. I have been assigned to complete a discharge summary on this account, I was not involved with the patient's management. Jess Corbin NP January 02, 2019 10:32
--- NOTE | 2019-01-02 13:47 | NUR ---
*-* INSURANCE *-* DISCHARGE SUMMARY HAVE BEEN FAXED TO: CHANELL UMANZOR F:[phone]
== END 2019-01-01 11:45 | disposition home or self-care (01) | DRG 641 ==
LOC: EDBD 19:26 → EMR 21:51 → 2E 21:56 → EDBEDREQ 22:16
DX: E86.0 Dehydration (principal); R55 Syncope and collapse; N40.0 Benign prostatic hyperplasia without lower urinary tract symptoms
CPT/HCPCS: 36415; 70553; 80048; 80053; 80061; 80307; 81003; 82550; 82553; 83036; 84443; 84484; 85025; 93005; 93306; 93880; 95819; 99285; A9585